=== PATIENT | male | born 1995 | race Caucasian/White ===

== ENCOUNTER → 2018-04-23 | Outpatient (REF) | payer OTHER | LOC: M SFHCLERA 15:04 | DX: B97.89 Other viral agents as the cause of diseases classified elsewhere (principal) ==

== ENCOUNTER → 2018-04-23 | Outpatient (CLI) | payer OTHER, SELFPAY ==
--- NOTE | 2018-04-23 13:37 | REP ---
Chest x-ray: Three views. History: Cough . Comparison study: No comparison study . Findings: The lungs are well inflated and free of infiltrate. The pleural angles are sharp. The heart size is normal. Pulmonary vasculature is not increased. No significant bony abnormality is seen. Impression: Negative chest x-ray. Electronically Signed by Ludin Vincent MD 04/23/2018 01:28 P
== END ==
LOC: M LRY 12:51
PROVIDERS: ATTEND Physician Assistant Medical
DX: R05 Cough (principal)

== ENCOUNTER 2018-10-25 03:54 | Emergency (ER) | payer OTHER, SELFPAY ==
[~2018-10-25] VITALS: Ht 180.3 cm; Wt 70.5 kg
[2018-10-25] MEDS ORDERED: LIDOCAINE 1% MDV 20ML VIAL As Ordered ONE (04:10)
[2018-10-25] MEDS ORDERED: LIDOCAINE W/EPINEPHRINE 1% 20ML VIAL As Ordered ONE (04:11)
[2018-10-25] MEDS ORDERED: ONDANSETRON 4MG/2ML VIAL (J2405) IV ONE (04:30)
[2018-10-25] MEDS ORDERED: NS 1,000 ML IV ONE (04:30)
[2018-10-25 04:35] LABS: BASO % 0.5 % (0.0-1.0); EOS # 0.1 10^3/uL (0.0-0.50); EOS % 1.1 % (0.0-3.0); HEMATOCRIT 42.7 % (42.0-52.0); HEMOGLOBIN 14.9 g/dl (13.5-17.5); LYMPH # 2.6 10^3/uL (1.5-6.5); LYMPH % 33.8 % (24.0-44.0); MEAN CORPUSCULAR HEMOGLOBIN 32.4 pg (27.0-33.0); MEAN CORPUSCULAR HGB CONC 34.9 g/dl (32.0-36.5); MEAN CORPUSCULAR VOLUME 92.8 fl (80.0-96.0); MONO # 0.6 10^3/uL (0.0-0.8); MONO % 7.9 % (0.0-5.0); NEUTROPHILS # 4.3 10^3/uL (1.8-7.7); NEUTROPHILS % 56.4 % (36.0-66.0); PLATELET COUNT, AUTOMATED 288 10^3/uL (150-450); WHITE BLOOD COUNT 7.6 10^3/uL (4.0-10.0)
[2018-10-25 04:53] LABS: BLOOD UREA NITROGEN 9 MG/DL (7-18); CALCIUM LEVEL 8.3 MG/DL (8.5-10.1); CARBON DIOXIDE LEVEL 26 MEQ/L (21-32); CHLORIDE LEVEL 105 MEQ/L (98-107); CREATININE FOR GFR 0.88 MG/DL (0.70-1.30); ETHYL ALCOHOL (ETHANOL) 0.095 % (0.000-0.010); GLOMERULAR FILTRATION RATE > 60.0 (>60); GLUCOSE, FASTING 106 MG/DL (70-100); POTASSIUM SERUM 3.4 MEQ/L (3.5-5.1); SODIUM LEVEL 143 MEQ/L (136-145)
[2018-10-25] MEDS ORDERED: ADACEL/BOOSTRIX VACCINE (DIPHTH/PERTUSS/ACELL/TETANUS)0.5ML SYR (90715) IM ONE (05:30)
[2018-10-25] MEDS ORDERED: AMMONIA AROMATIC INHALANT (FLOOR STOCK) As Ordered ONE (06:45)
[2018-10-25 08:34] LABS: BASO % 0.3 % (0.0-1.0); EOS % 0.2 % (0.0-3.0); HEMATOCRIT 40.1 % (42.0-52.0); HEMOGLOBIN 14.1 g/dl (13.5-17.5); LYMPH # 1.6 10^3/uL (1.5-6.5); LYMPH % 12.8 % (24.0-44.0); MEAN CORPUSCULAR HEMOGLOBIN 33.3 pg (27.0-33.0); MEAN CORPUSCULAR HGB CONC 35.2 g/dl (32.0-36.5); MEAN CORPUSCULAR VOLUME 94.6 fl (80.0-96.0); MONO # 0.8 10^3/uL (0.0-0.8); MONO % 6.4 % (0.0-5.0); NEUTROPHILS # 10.1 10^3/uL (1.8-7.7); NEUTROPHILS % 80.1 % (36.0-66.0); PLATELET COUNT, AUTOMATED 228 10^3/uL (150-450); RED BLOOD COUNT 4.24 10^6/uL (4.30-6.10); WHITE BLOOD COUNT 12.6 10^3/uL (4.0-10.0)
[2018-10-25 09:11] VITALS: BP 122/75
== END 2018-10-25 09:13 | disposition home or self-care (01) ==
LOC: M ED 03:54
DX: S71.112A Laceration without foreign body, left thigh, initial encounter (principal); W22.8XXA Striking against or struck by other objects, initial encounter; Y92.008 Other place in unspecified non-institutional (private) residence as the place of occurrence of the external cause; F17.210 Nicotine dependence, cigarettes, uncomplicated
CPT/HCPCS: 80048; 85025; 86850; 86900; 86901; 90471; 90715; 96374; 99284; G0480; J2405

== ENCOUNTER 2018-11-03 12:58 | Emergency (ER) | payer SELFPAY ==
[~2018-11-03] VITALS: Ht 180.3 cm; Wt 72.7 kg
[2018-11-03 12:58] VITALS: BP 123/71
== END 2018-11-03 13:49 | disposition home or self-care (01) ==
LOC: M ED 12:58
DX: Z48.02 Encounter for removal of sutures (principal)

== ENCOUNTER 2019-02-28 00:46 | Emergency (ER) | payer SELFPAY ==
[~2019-02-28] VITALS: Ht 180.3 cm; Wt 68.2 kg
--- NOTE | 2019-02-28 02:32 | REPVR ---
PROCEDURE INFORMATION: Exam: US Pelvis Limited, Male Exam date and time: 02/28/2019 1:59 AM Clinical history: 24 years old, male; Pain; Other: RT groin; Additional info: Right groin pain and swelling TECHNIQUE: Imaging protocol: Real-time pelvic ultrasound with image documentation. COMPARISON: No relevant prior studies available. FINDINGS: Soft tissues: There is a right inguinal hernia containing fat and no bowel. The defect measures 10 mm in diameter at rest and 12 mm with Valsalva. No left inguinal hernia. The inguinal canal measures 5 mm with rest and Valsalva. Bilateral inguinal nodes are present measuring up to 2.5 x 0.7 x 1.3 cm on the right with increased central blood flow. In the left inguinal region, there are nodes measuring up to 1.6 x 2.4 x 1.0 cm, also with increased central blood flow. IMPRESSION: 1. Right inguinal hernia containing fat. 2. Enlarged bilateral hyperemic lymph nodes. Electronically signed by: Jayson Karimi On 02/28/2019 02:31:48 AM
[2019-02-28 03:18] VITALS: BP 116/53
[2019-02-28] MEDS ORDERED: NAPR-837 PO (03:43)
[2019-02-28] MEDS ORDERED: OXYCODONE/APAP 5MG/325MG(BULK FOR ED) 1 TABLET PO ONE (03:45)
[2019-02-28] MEDS ORDERED: NAPROXEN 250 MG TAB PO ONE (03:45)
== END 2019-02-28 03:52 | disposition home or self-care (01) ==
LOC: M ED 00:46
DX: K40.90 Unilateral inguinal hernia, without obstruction or gangrene, not specified as recurrent (principal); F17.200 Nicotine dependence, unspecified, uncomplicated

== ENCOUNTER → 2019-12-04 | Outpatient (CLI) | payer OTHER, SELFPAY ==
[~2019-12-04] MED LIST: NAPR-837 PO
== END ==
LOC: M LABSMTC 11:53
PROVIDERS: ATTEND Family Medicine
DX: Z01.818 Encounter for other preprocedural examination (principal); Z11.59 Encounter for screening for other viral diseases
CPT/HCPCS: C9803; U0003